=== PATIENT | female | born 1960 | race Caucasian/White ===

== ENCOUNTER 2018-12-28 12:28 | Emergency (ER) | payer BC ==
--- NOTE | 2018-12-28 13:42 | RADIOLOGY REPORT (SQ) ---
EXAM DESCRIPTION: HIP LEFT AP/LATERAL COMPLETED DATE/TIME: 12/28/2018 1:19 pm REASON FOR STUDY: fell COMPARISON: None. NUMBER OF VIEWS: Two views. TECHNIQUE: AP pelvis and additional frog-leg view of the left hip. LIMITATIONS: None. FINDINGS: Bones are osteopenic. Acute minimally displaced left superior and inferior pubic ramus fractures are present, marked with a wrangell. Suspect a hairline nondisplaced fracture through the left sacral ala. Remainder of the bony pelvis is intact. AP and surgical lateral view of the left hip are unremarkable. AP view of the right hip in the field of view is unremarkable. IMPRESSION: Acute minimally displaced left superior and inferior pubic ramus fractures. Suspect a hairline nondisplaced fracture through the left sacral ala TECHNICAL DOCUMENTATION: JOB ID: [id number] [employer]- All Rights Reserved Reading location - IP/workstation name: [email or web address]
--- NOTE | 2018-12-28 13:44 | RADIOLOGY REPORT (SQ) ---
EXAM DESCRIPTION: FEMUR LEFT COMPLETED DATE/TIME: 12/28/2018 1:19 pm REASON FOR STUDY: fell COMPARISON: None. NUMBER OF VIEWS: Two views. TECHNIQUE: Two radiographic images acquired of the left femur to include hip and knee in at least on e projection. LIMITATIONS: None. FINDINGS: Left femur is intact. No malalignment at the left hip or knee joint. At the edge of the field of view, minimally displaced left superior and inferior pubic ramus acute fr actures are present. IMPRESSION: Left femur is intact, no fracture. Minimally displaced left superior and inferior pubic rami fractures are present TECHNICAL DOCUMENTATION: JOB ID: [id number] [employer]- All Rights Reserved Reading location - IP/workstation name: [email or web address]
--- NOTE | 2018-12-28 14:01 | ER Document Report ---
ED General - General Chief Complaint: Fall Injury Stated Complaint: LEFT SIDE HIP PAIN Time Seen by Provider: 12/28/18 13:37 Notes: 58-year-old generally healthy female with hypothyroidism and hypertension presents to emergency department after mechanical fall at her daughter's house. She was stepping over a dog gate and fell and landed on her hip. She has been unable to move her legs she called 911 was brought in by EMS. She denies beck ing her head, denies any abdominal pain, has strong 2+ dorsalis pedis pulses bilateral and 2+ posterior tibialis pulses bilateral. Sensation intact light touch. Patient cannot lift her left leg off the bed. TRAVEL OUTSIDE OF THE [place] IN LAST 30 DAYS: No - Related Data Allergies/Adverse Reactions: Sulfa (Sulfonamide Antibiotics) Allergy (Intermediate, Verified 12/28/18 12:52) Past Medical History - Social History Smoking Status: Never Smoker Family History: None Review of Systems - Review of Systems Constitutional: See HPI EENT: No symptoms reported Cardiovascular: No symptoms reported Respiratory: No symptoms reported Gastrointestinal: No symptoms reported Genitourinary: No symptoms reported Female Genitourinary: No symptoms reported Musculoskeletal: See HPI Skin: No symptoms reported Hematologic/Lymphatic: No symptoms reported Neurological/Psychological: No symptoms reported Physical Exam - Notes Notes: PHYSICAL EXAMINATION: Reviewed vital signs and charting by RN GENERAL: Alert, interacts well. No acute distress. HEAD: Normocephalic, atraumatic. EYES: Pupils equal and round. Extraocular movements intact. ENT: Oral mucosa moist, tongue midline. NECK: Full range of motion. Trachea midline. ABDOMEN: soft, non-tender. No distention. EXTREMITIES: Unable to raise her left leg off the bed, has difficulty raising her right leg off the bed but can slide her foot up and raise her knee. Strong bilateral 2+ DP and PT pulses, brisk cap refill bilateral, sensation intact to light touch bilateral lower extremities, normal patellar reflexes PSYCH: Normal affect, normal mood. SKIN: Warm, dry, normal turgor. No rashes or lesions noted. Course - Re-evaluation Re-evalutation: 12/28/18 14:01 Patient presents with mechanical fall. X-ray shows acute minimally displaced superior and inferior pubic ramus fractures on the left with suspected hairline fracture of the sacral efrem plan is to consult a orthopedic service from [facility] as we do not have orthopedics immersion metal cleaner. Patient is here vacationing visiting her daughter and does not have a local health care. 12/28/18 14:01 12/28/18 14:47 As suspected I spoke with Dr. Montejo, orthopedic surgeon on-call at [facility] for consult. He said that the nature of the fracture did not require any intervention it is nonoperative. He said it is a weightbearing injury and patient can ambulate using crutches. His recommendation was that and pain control with NSAIDs and if necessary narcotic pain medication. He stated patient should follow-up with an orthopedist within 10 days. Patient is very leery about taking medications and also I will prescribe her a short course of Alexandria. Patient does have insurance and will follow-up within 10 days up in [place]. Patient is in no acute distress, vital signs within normal limits, patient understands the plan and agrees to it. Stable for discharge. Discharge - Discharge Clinical Impression: Pubic ramus fracture Qualifiers: Encounter type: initial encounter Fracture type: closed Laterality: left Qualified Code(s): S32.592A - Other specified fracture of left pubis, initial encounter for closed fracture Condition: Good Disposition: HOME, SELF-CARE Additional Instructions: You were seen in the emergency department this afternoon for a pelvic fracture. The nature of this injury is nonoperative. After speaking with the orthopedic surgeon on-call in [place]'s recommendation was pain control. He said to bear weight on it and use crutches. Take Motrin 600 mg every 6 hours with food or milk and/or the Alexandria that you are prescribed as needed for breakthrough pain. Please follow-up with an orthopedist at home in 10 days. If you develop paralysis of either of your legs, you have unilateral swelling of either of your legs, you have severe pain out of proportion to movement of either of your legs, you become very lightheaded, dizzy, develop severe acute shortness of breath or chest pain, please immediately return to the emergency department for reevaluation. Prescriptions: Hydrocodone/Acetaminophen [Alexandria 5-325 mg Tablet] 1 tab PO Q6H PRN #15 tablet PRN Reason: RX: Ibuprofen [Motrin 600 mg Tablet] 600 mg PO Q6H #60 tablet
== END 2018-12-28 15:10 | disposition home or self-care (01) ==
LOC: ER 12:28
DX: S32.592A Other specified fracture of left pubis, initial encounter for closed fracture (principal); M25.552 Pain in left hip; I10 Essential (primary) hypertension; W19.XXXA Unspecified fall, initial encounter
CPT/HCPCS: 99285